=== PATIENT | female | born 1975 | race Caucasian/White ===

== ENCOUNTER 2018-04-16 01:00 | Emergency (ER) | payer OTHER ==
[~2018-04-16] VITALS: Ht 157.5 cm; Wt 56.7 kg
[~2018-04-16 01:00] MED LIST: CLINDAMYCIN HC150 MG PO; MIRALAX17 GM PO; SYNTHROID25 MCG PO; TRIAMTERENE-HCTZ1 EA PO
[2018-04-16] MEDS ORDERED: DIPHENHYDRAMINE HCL INJ 50 MG/ML VIAL IV ONE (01:30)
[2018-04-16] MEDS ORDERED: SODIUM CHLORIDE 0.9% 1000ML 1,000 ML IV ONE (01:30)
[2018-04-16] MEDS ORDERED: METOCLOPRAMIDE HCL 10 MG/2ML VIAL IV ONE (01:30)
[2018-04-16] MEDS ORDERED: ACETAMIN/BUTALBITAL/CAFFEINE TAB PO ONE (01:30)
[2018-04-16 02:05] LABS: BASOPHILS # (AUTO) 0.1 (0.0-0.1); EOSINOPHILS # (AUTO) 0.3 (0.0-0.4); EOSINOPHILS % 2.6 % (0.0-6.0); HEMATOCRIT 38.9 % (34.2-44.1); HEMOGLOBIN 13.9 g/dL (12.0-16.0); LYMPHOCYTES # (AUTO) 3.2 (1.0-3.2); MEAN CORPUSCULAR HEMOGLOBIN 31.4 pg (28-32); MEAN CORPUSCULAR HGB CONC 35.7 g/dL (31-35); MEAN CORPUSCULAR VOLUME 87.8 fL (81-99); MONOCYTES # (AUTO) 0.6 (0.2-0.8); MONOCYTES % 6.5 % (4.4-11.3); NEUTROPHILS # (AUTO) 5.5 (2.1-6.9); NEUTROPHILS % 56.6 % (38.7-80.0); PLATELET COUNT 302 x10e3/uL (140-360); RED BLOOD COUNT 4.43 x10e6/uL (3.6-5.1); RED CELL DISTRIBUTION WIDTH 12.1 % (11.7-14.4)
[2018-04-16 02:21] LABS: ALANINE AMINOTRANSFERASE 35 IU/L (0-55); ALBUMIN 4.5 g/dL (3.5-5.0); ALBUMIN/GLOBULIN RATIO 1.3 (0.8-2.0); ALKALINE PHOSPHATASE 55 IU/L (40-150); ANION GAP 16.4 mmol/L (8-16); BLOOD UREA NITROGEN 18 mg/dL (7-26); BUN/CREATININE RATIO 25 (6-25); CALCIUM 10.3 mg/dL (8.4-10.2); CARBON DIOXIDE 21 mmol/L (22-29); CHLORIDE 104 mmol/L (98-107); CREATININE, SERUM 0.72 mg/dL (0.57-1.11); EST GLOMERULAR FILTRATION RATE > 60 ML/MIN (60-); GLUCOSE 112 mg/dL (74-118); POTASSIUM 3.4 mmol/L (3.5-5.1); SODIUM 138 mmol/L (136-145)
--- NOTE | 2018-04-16 02:24 | Diagnostic Imaging Report ---
EXAMINATION: Head CT without contrast. HISTORY:Headache and vomiting. COMPARISON:None. TECHNIQUE: Multidetector axial images were obtained from the foramen magnum to the vertex without contrast. The images were reconstructed using brain and bone algorithms. Thin section brain images were reformatted into coronal and sagittal planes. Intravenous contrast: None IMAGE QUALITY: Acceptable. FINDINGS: Skull/scalp: No lytic or blastic. lesions. No surgical changes. Parenchyma: No abnormal density. No acute hemorrhage, mass or acute major vascular territorial infarct. Arteries: No density suggestive of thrombosis. Dural sinuses: No abnormal density suggestive of thrombosis. Ventricles: No hydrocephalus or displacement. Extra-axial spaces: No abnormal density. Brain volume: Normal for age. Craniocervical junction: No mass, Chiari malformation, or basilar invagination. Sella: No mass. Paranasal/mastoid sinuses: Imaged portions unremarkable IMPRESSION: No intracranial abnormality. Signed by: Dr. Maggie Putnam M.D. on 04/16/2018 2:20 AM
[2018-04-16 02:33] LABS: BILIRUBIN,URINE NEGATIVE (NEGATIVE); COLOR,URINE YELLOW (YELLOW); KETONES,URINE NEGATIVE (NEGATIVE); LEUKOCYTE ESTERASE ,URINE NEGATIVE (NEGATIVE); NITRITE,URINE NEGATIVE (NEGATIVE); PROTEIN,URINE DIPSTICK 1+ (NEGATIVE); URINE UROBILINOGEN 0.2 mg/dL (0.2 - 1)
[2018-04-16 02:34] LABS: CLARITY,URINE SL CLOUDY (CLEAR)
[2018-04-16] MEDS ORDERED: KETOROLAC TROMETHAMINE 30 MG/ML VIAL IV STA (02:37)
[2018-04-16 02:46] LABS: AMORPHOUS SEDIMENT,URINE MODERATE (FEW); BACTERIA,URINE RARE /HPF; EPITHELIAL CELLS,URINE RARE /LPF
[2018-04-16 04:03] VITALS: BP 116/63
== END 2018-04-16 03:45 | disposition home or self-care (01) ==
LOC: ER 01:00
DX: G43.909 Migraine, unspecified, not intractable, without status migrainosus (principal); E03.9 Hypothyroidism, unspecified
CPT/HCPCS: 36415; 70450; 80053; 81001; 84702; 85025; 99284; J1200; J1885; J2765; J7030

== ENCOUNTER 2019-01-28 16:51 | Emergency (ER) | payer BC, OTHER ==
[~2019-01-28] VITALS: Ht 157.5 cm; Wt 58.1 kg
--- OUTSIDE RECORDS SUMMARY | 2019-01-28 16:54 | XMS REPORT ---
Author Author [facility] Address Unknown Phone Unavailable Care Team Providers Care Biomaterials Engineer Name Role Phone Zoila DEWITT Unavailable Unavailable Problems This patient has no known problems. Allergies, Adverse Reactions, Alerts This patient has no known allergies or adverse reactions. Medications This patient has no known medications. Results Test Description Test Time Test Comments Text Results Atomic Results Result Comments CT BRAIN WO [place] [address] Patient Name: ELLIE SCHULTE MR #: [id number] : 1975 Age/Sex: 43/F Req #: [id number] Adm Physician: Ordered by: HUGH DEWITT MD Report #: [id number] Location: ER Room/Bed: Procedure: [id number] CT/CT BRAIN WO Exam Date: Exam Time: REPORT STATUS: Signed EXAMINATION: Head CT without contrast. HISTORY:Headache and vomiting. COMPARISON:None. TECHNIQUE: Multidetector axial images were obtained from the foramen magnum to the vertex without contrast. The images were reconstructed using brain and bone algorithms. Thin section brain images were reformatted into coronal and sagittal planes. Intravenous contrast: None IMAGE QUALITY: Acceptable. FINDINGS: Skull/scalp: No lytic or blastic. lesions. No surgical changes. Parenchyma: No abnormal density. No acute hemorrhage, mass or acute major vascular territorial infarct. Arteries: No density suggestive of thrombosis. Dural sinuses: No abnormal density suggestive of thrombosis. Ventricles: No hydrocephalus or displacement. Extra-axial spaces: No abnormal density. Brain volume: Normal for age. Craniocervical junction: No mass, Chiari malformation, or basilar invagination. Sella: No mass. Paranasal/mastoid sinuses: Imaged portions unremarkable IMPRESSION: No intracranial abnormality. Signed by: Dr. Maggie Santos M.D. on 04/16/2018 2:20 AM Dictated By: MAGGIE SANTOS MD 20 Transcribed By: FLOYD on 04/16/18 0220 COPY TO: HUGH DEWITT MD
--- NOTE | 2019-01-28 17:52 | Diagnostic Imaging Report ---
History: Headache Comparison studies: None Technique: Axial images were obtained from the skull base to the vertex. Coronal and sagittal reconstructions obtained from the axial data. Dose modulation, iterative reconstruction, and/or weight based adjustment of the mA/kV was utilized to reduce the radiation dose to as low as reasonably achievable. Findings: Scalp/skull: No abnormalities. No fractures, blastic or lytic lesions. Extra-axial spaces: No masses. No fluid collections. Brain sulci: Appropriate for age. Ventricles: Normal in size and configuration. No hydrocephalus. Parenchyma: No abnormal densities. No masses, hemorrhage, acute or chronic cortical vascular insults. Sellar/suprasellar region: No abnormalities Craniocervical junction: Patent foramen magnum. No Chiari one malformation. IMPRESSION: No abnormalities. Signed by: Dr. Anil Becker M.D. on 01/28/2019 5:49 PM
[2019-01-28 18:23] LABS: BASOPHILS # (AUTO) 0.1 (0.0-0.1); BASOPHILS % 0.9 % (0.0-1.0); EOSINOPHILS # (AUTO) 0.4 (0.0-0.4); EOSINOPHILS % 3.6 % (0.0-6.0); HEMATOCRIT 41.6 % (34.2-44.1); HEMOGLOBIN 14.2 g/dL (12.0-16.0); LYMPHOCYTES # (AUTO) 3.1 (1.0-3.2); LYMPHOCYTES % 30.2 % (18.0-39.1); MEAN CORPUSCULAR HEMOGLOBIN 30.9 pg (28-32); MEAN CORPUSCULAR HGB CONC 34.1 g/dL (31-35); MEAN CORPUSCULAR VOLUME 90.6 fL (81-99); MONOCYTES # (AUTO) 0.7 (0.2-0.8); MONOCYTES % 6.5 % (4.4-11.3); NEUTROPHILS % 58.6 % (38.7-80.0); PLATELET COUNT 271 x10e3/uL (140-360); RED BLOOD COUNT 4.59 x10e6/uL (3.6-5.1); RED CELL DISTRIBUTION WIDTH 13.1 % (11.7-14.4)
[2019-01-28 18:45] LABS: ALANINE AMINOTRANSFERASE 26 IU/L (0-55); ALBUMIN 4.4 g/dL (3.5-5.0); ALBUMIN/GLOBULIN RATIO 1.5 (0.8-2.0); ALKALINE PHOSPHATASE 51 IU/L (40-150); ANION GAP 15.4 mmol/L (8-16); BLOOD UREA NITROGEN 12 mg/dL (7-26); BUN/CREATININE RATIO 21 (6-25); CALCIUM 9.9 mg/dL (8.4-10.2); CARBON DIOXIDE 23 mmol/L (22-29); CHLORIDE 101 mmol/L (98-107); CREATINE KINASE 87 IU/L (29-168); CREATININE, SERUM 0.58 mg/dL (0.57-1.11); EST GLOMERULAR FILTRATION RATE > 60 ML/MIN (60-); GLUCOSE 86 mg/dL (74-118); POTASSIUM 4.4 mmol/L (3.5-5.1); SODIUM 135 mmol/L (136-145)
[2019-01-28] MEDS ORDERED: CLONIDINE HCL 0.1 MG TAB ONE (20:07)
[2019-01-28] MEDS ORDERED: CLONIDINE HCL 0.1 MG TAB PO ONE (20:15)
[2019-01-28 21:19] VITALS: BP 150/92
== END 2019-01-28 21:44 | disposition home or self-care (01) ==
LOC: ER 16:51
DX: R42 Dizziness and giddiness (principal); R11.0 Nausea; R55 Syncope and collapse; I10 Essential (primary) hypertension
CPT/HCPCS: 36415; 70450; 80053; 82550; 82553; 84484; 85025; 99283